=== PATIENT | female | born 1945 | race Caucasian/White ===

== ENCOUNTER → 2018-04-17 | Outpatient (CLI) | payer OTHER | END | disposition home or self-care (01) | LOC: RAD 12:52 | PROVIDERS: ATTEND Orthopaedic Surgery | DX: S83.231A Complex tear of medial meniscus, current injury, right knee, initial encounter (principal); S83.281A Other tear of lateral meniscus, current injury, right knee, initial encounter; M17.11 Unilateral primary osteoarthritis, right knee; M25.461 Effusion, right knee; R60.0 Localized edema; X58.XXXA Exposure to other specified factors, initial encounter; Y93.89 Activity, other specified; Y92.89 Other specified places as the place of occurrence of the external cause; Y99.8 Other external cause status ==

== ENCOUNTER → 2018-05-29 | Outpatient (CLI) | payer OTHER ==
[~2018-05-29] MED LIST: MULT-224 PO; PANT40TA5 PO; SERT50TA28 PO
== END | disposition home or self-care (01) ==
LOC: STAR 07:56
PROVIDERS: ATTEND Orthopaedic Surgery
DX: Z01.818 Encounter for other preprocedural examination (principal); S83.281A Other tear of lateral meniscus, current injury, right knee, initial encounter; S83.241A Other tear of medial meniscus, current injury, right knee, initial encounter; X58.XXXA Exposure to other specified factors, initial encounter; Y93.89 Activity, other specified; Y92.89 Other specified places as the place of occurrence of the external cause; Y99.8 Other external cause status
CPT/HCPCS: 93005

== ENCOUNTER 2018-06-04 13:19 | Day surgery (SDC) | payer OTHER ==
[~2018-06-04] VITALS: Ht 165.1 cm; Wt 83.7 kg
[~2018-06-04 13:19] MED LIST changes: +BUPIVACAINE/PF-EPI 0.5% 1:200K ONE; +CEFAZOLIN 1,000 MG ONE; +DEXAMETHASONE 4 MG/ML, 1ML ONE; +LIDOCAINE 1%-EPI 1:100K, 30ML ONE; -MULT-224 PO; +MULT-642 PO; +PROPOFOL 10 MG/ML, 20ML ONE
[2018-06-04] MEDS ORDERED: LACTATED RINGERS 1,000 ML IV SCH (13:50)
[2018-06-04 13:53] VITALS: BP 151/84
[2018-06-04] MEDS ORDERED: MIDAZOLAM 1 MG/ML, 2ML ONE (14:52)
[2018-06-04] MEDS ORDERED: FENTANYL PF 100 MCG/2ML ONE ×3 (14:53→16:00)
[2018-06-04] MEDS ORDERED: MEPERIDINE/PF 25MG/0.5ML IVPush PRN (16:00)
[2018-06-04] MEDS ORDERED: PROMETHAZINE 25 MG/ML, 1ML IV PRN (16:00)
[2018-06-04] MEDS ORDERED: KETOROLAC 30 MG/1 ML IV PRN (16:00)
[2018-06-04] MEDS ORDERED: HYDROmorphone 2 MG/ML, 1ML IVPush PRN (16:00)
[2018-06-04] MEDS ORDERED: OXYcodone 5 MG/5 ML ORAL.SOL UDC PO PRN (16:00)
[2018-06-04] MEDS ORDERED: ACETAMINOPHEN 650 MG/20.3 ML UDC ONE (16:00)
[2018-06-04] MEDS ORDERED: ACETAMINOPHEN 325 MG TABLET ONE (16:00)
[2018-06-04] MEDS ORDERED: hydrALAzine 20 MG/ML, 1ML IV PRN (16:00)
[2018-06-04] MEDS ORDERED: DIAZEPAM 5 MG/ML, 2ML IVPush PRN (16:00)
[2018-06-04] MEDS ORDERED: ALBUTEROL SULFATE 2.5 MG/3 ML NPPB PRN (16:00)
[2018-06-04] MEDS ORDERED: ACETAMINOPHEN 325 MG TABLET PO PRN (16:00)
[2018-06-04] MEDS ORDERED: OXYcodone 5 MG/5 ML ORAL.SOL UDC ONE (16:00)
[2018-06-04] MEDS ORDERED: FENTANYL PF 100 MCG/2ML IV PRN (16:00)
[2018-06-04] MEDS ORDERED: LABETALOL 5MG/ML, 20ML IV PRN (16:00)
[2018-06-04] MEDS ORDERED: KETOROLAC 30 MG/1 ML ONE (16:06)
[2018-06-04] MEDS ORDERED: HYDROmorphone 2 MG/ML, 1ML ONE (16:30)
[2018-06-05] MEDS ORDERED: PANTOPROZOLE 40MG TABLET PO SCH (06:00)
[2018-06-05] MEDS ORDERED: SERTRALINE 50MG TABLET PO SCH (09:00)
== END 2018-06-04 19:35 | disposition home or self-care (01) ==
LOC: OR 13:19
PROVIDERS: ATTEND Orthopaedic Surgery
DX: S83.231A Complex tear of medial meniscus, current injury, right knee, initial encounter (principal); S83.281A Other tear of lateral meniscus, current injury, right knee, initial encounter; M65.861 Other synovitis and tenosynovitis, right lower leg; X58.XXXA Exposure to other specified factors, initial encounter; Y93.89 Activity, other specified; Y92.89 Other specified places as the place of occurrence of the external cause; Y99.8 Other external cause status
CPT/HCPCS: 29876; 29880; J0690; J1100; J1170; J1885; J2250; J2704; J3010; J3490; J7120

== ENCOUNTER 2018-08-29 21:37 | Emergency (ER) | payer OTHER ==
[~2018-08-29] VITALS: Ht 165.1 cm; Wt 83.6 kg
[~2018-08-29 21:37] MED LIST changes: -BUPIVACAINE/PF-EPI 0.5% 1:200K ONE; -CEFAZOLIN 1,000 MG ONE; -DEXAMETHASONE 4 MG/ML, 1ML ONE; -LIDOCAINE 1%-EPI 1:100K, 30ML ONE; -PROPOFOL 10 MG/ML, 20ML ONE
[2018-08-29] MEDS ORDERED: LIDOCAINE 1%-EPI 1:100K, 20ML INFIL ONE (22:00)
[2018-08-29] MEDS ORDERED: LIDOCAINE-MPF 1%, 5ML ONE (22:04)
--- NOTE | 2018-08-29 22:33 | NUR ---
PT HERE FOR GLF WITH LAC TO FOREHEAD. VSS. PT BACK FROM CT AND TO BE SUTURES. PT HAS NO NEEDS AT THIOS TIME. CALL LIGHT IN REACH
--- NOTE | 2018-08-29 23:15 | NUR ---
pa at bedside to repair lac
[2018-08-29 23:16] VITALS: BP 147/81
--- NOTE | 2018-08-29 23:26 | NUR ---
Patient given discharge instructions and they have confirmed that they understand the instructions. Patient ambulatory with steady gait.
== END 2018-08-29 23:28 | disposition home or self-care (01) ==
LOC: ED 22:38
DX: S06.0X9A Concussion with loss of consciousness of unspecified duration, initial encounter (principal); S01.81XA Laceration without foreign body of other part of head, initial encounter; W01.0XXA Fall on same level from slipping, tripping and stumbling without subsequent striking against object, initial encounter; Y93.89 Activity, other specified; Y92.009 Unspecified place in unspecified non-institutional (private) residence as the place of occurrence of the external cause; Y99.8 Other external cause status
CPT/HCPCS: 12011; 70450; 72125; 99284